=== PATIENT | female | born 1980 | race Asian ===

== ENCOUNTER 2019-12-13 14:39 | Emergency (ER) | payer MEDICAID ==
[~2019-12-13] VITALS: Ht 154.9 cm; Wt 50.8 kg
[2019-12-13 15:16] VITALS: BP 115/77
--- NOTE | 2019-12-13 15:16 | NUR ---
ED Nurse Note: PT WALKED IN DUE GENERALIZED RASHES WITH ITCHINESS X 4 DAYS. NO SOB.
--- NOTE | 2019-12-13 16:25 | Emergency Room Report ---
History of Present Illness General Chief Complaint: Skin Rash/Abscess Present Illness HPI 39 YO female presents to the ED c/o itchy diffuse rash that comes and goes after she eats or breast feeds x 2 days. She is currently breast feeding she is 7 weeks post . She denies pain. She has taken Claritin without relief. Pt. denies fevers, chills or swollen tender lymph nodes. Denies lesions /rashes elsewhere on the body. Denies new medications or body washes or creams. Denies swelling of the lips, tongue , throat or airway. Denies wheezing, or shortness of breath. Denies recent travel, recent illness or ill contacts. denies blisters, oral lesions, or sloughing of the skin. Allergies: Coded Allergies: No Known Allergies (Unverified , 12/13/19) Patient History Past Medical History: see triage record Past Surgical History: none Pertinent Family History: none Last Menstrual Period: 2 MONTHS/ Now: No Reviewed Nursing Documentation: PMH: Agreed; PSxH: Agreed Review of Systems All Other Systems: negative except mentioned in HPI Physical Exam Vital Signs Date Time Temp Pulse Resp B/P (MAP) Pulse Ox O2 Delivery O2 Flow Rate FiO2 12/13/19 14:44 98.8 75 16 115/77 (90) 97 Room Air Sp02 EP Interpretation: reviewed, normal General Appearance: no apparent distress, alert, GCS 15, non-toxic Head: normocephalic, atraumatic Eyes: bilateral eye normal inspection, bilateral eye PERRL ENT: hearing grossly normal, normal pharynx, no angioedema, normal voice, other - no swelling of the lips or tongue Neck: full range of motion, other Respiratory: chest non-tender, lungs clear, normal breath sounds, no wheezing, speaking full sentences Cardiovascular #1: regular rate, rhythm Gastrointestinal: non tender, soft Musculoskeletal: normal range of motion, gait/station normal, non-tender Neurologic: alert, motor strength/tone normal, oriented x3, sensory intact, responsive, speech normal Psychiatric: judgement/insight normal Skin: rash - diffuse hives on the LE's and UE's bilaterally. no blisters, vessicles or sloughing of the skin. no evidence of secondary infection. Lymphatic: no adenopathy Medical Decision Making PA Attestation Dr. Pabon is my supervising Physician whom patient management has been discussed with. Diagnostic Impression: Primary Impression: Rash and other nonspecific skin eruption ER Course 39 YO female presents to the ED c/o itchy diffuse rash that comes and goes after she eats or breast feeds x 2 days. She is currently breast feeding she is 6 weeks post . She denies pain. She has taken Claritin without relief. Pt. denies fevers, chills or swollen tender lymph nodes. Denies lesions /rashes elsewhere on the body. Denies new medications or body washes or creams. Denies swelling of the lips, tongue , throat or airway. Denies wheezing, or shortness of breath. Denies recent travel, recent illness or ill contacts. denies blisters, oral lesions, or sloughing of the skin. Ddx considered but are not limited to cellulitis, scabies, shingles, varicella, dermatitis, urticaria, eczema, tinea, viral exanthem, SJS Vital signs: are WNL, pt. is afebrile H&PE are most consistent with Diffuse allergic reaction/ hives. No evidence to suggest acute impending airway compromise or anaphylaxis. Patient is not demonstrating any signs of respiratory distress. ORDERS: none required at this time, the diagnosis is clinical ED INTERVENTIONS: -Prednisone 40mg PO DISCHARGE: At this time pt. is stable for d/c to home. Will provide printed patient care instructions, and any necessary prescriptions. Care plan and follow up instructions have been discussed with the patient prior to discharge. Last Vital Signs Date Time Temp Pulse Resp B/P (MAP) Pulse Ox O2 Delivery O2 Flow Rate FiO2 12/13/19 15:16 98.8 68 16 115/77 97 Room Air Disposition: HOME, SELF-CARE Condition: Stable Scripts Prednisone* (PREDNISONE*) 20 Mg Tablet 20 MG ORAL DAILY for 4 Days, #4 TAB 0 Refills Prov: Monet Jimenez 12/13/19 Diphenhydramine Hcl (BENADRYL ALLERGY) 25 Mg Tablet 25 MG PO Q6HR, #30 TAB Prov: Monet Jimenez 12/13/19 Patient Instructions: Rash Additional Instructions: Take medications as directed. !! wait 4 hours before breast feeding after taking prednisone. Do not drink alcohol, drive, or operate heavy machinery while taking Benadryl as this may cause drowsiness. Follow up with a Primary Care Provider or OBGYN in 3-5 days, even if your symptoms have resolved. FOR ALLERGY TESTING Return sooner to ED if new symptoms occur, or current symptoms become worse. - Please note that this Emergency Department Report was dictated using [employer] spot welder technology software, occasionally this can lead to erroneous entry secondary to interpretation by the dictation equipment. Monet Jimenez Dec 13, 2019 16:25
[2019-12-13] MEDS ORDERED: BENADRYL ALLERG25 M1 PO (16:30)
[2019-12-13] MEDS ORDERED: PREDNISONE20 MG ORAL (16:30)
[2019-12-13 16:31] VITALS: BP 121/74
--- NOTE | 2019-12-13 16:32 | NUR ---
ER DISCHARGE NOTE: Patient is cleared to be discharged per ERMD, pt is aox4, on room air, with stable vital signs. pt was given dc and prescription instructions, pt was able to verbalize understanding, pt id band removed. pt is able to ambulate with steady gait. pt took all belongings.
== END 2019-12-13 16:30 | disposition home or self-care (01) ==
LOC: EMR 16:20
DX: R21 Rash and other nonspecific skin eruption (principal)
CPT/HCPCS: J7512; Z7502; 99282